=== PATIENT | female | born 1970 | race Caucasian/White ===

== ENCOUNTER 2017-06-01 10:52 | Emergency (ER) | payer OTHER ==
[2017-06-01 11:10] VITALS: BP 105/38
[2017-06-01] MEDS: Albuterol/Ipratropium 3.0-0.5 MG/3 ML Neb Soln ONE ×2 (11:14→11:16)
[2017-06-01] MEDS ORDERED: Albuterol/Ipratropium 3.0-0.5 MG/3 ML Neb Soln NEB ONE (11:15)
[2017-06-01] MEDS ORDERED: methylPREDNISolone Sodium Succinate 125 MG/2 ML SDV IM ONE (11:26)
--- NOTE | 2017-06-01 11:29 | EDM.PDOC ---
ED HPI GENERAL MEDICAL PROBLEM - General Chief Complaint: Respiratory Problem Stated Complaint: ASTHMA ATTACK Time Seen by Provider: 06/01/17 11:15 Source of Information: Reports: Patient History Limitations: Reports: No Limitations - History of Present Illness INITIAL COMMENTS - FREE TEXT/NARRATIVE: Patient presents to ER today with complaints of asthma attack that started at 0900 today. She reports she ran out of her albuterol inhaler and feels short of breath. Onset: Today Severity: Mild - Related Data Allergies Allergy/AdvReac Type Severity Reaction Status Date / Time amoxicillin Allergy Hives Verified 06/01/17 11:07 Gold Salts Allergy Hives Verified 06/01/17 11:07 Iodinated Contrast- Oral and Allergy Shortness Verified 06/01/17 11:07 IV Dye of Breath Home Meds: Home Meds Albuterol [IJD: Ventolin HFA] 06/01/17 [History] Albuterol/Ipratropium [DuoNeb 3.0-0.5 MG/3 ML] 06/01/17 [History] Past Medical History Musculoskeletal History: Reports: RA Neurological History: Reports: Migraines - Past Surgical History GI Surgical History: Reports: Cholecystectomy Female Surgical History: Reports: Hysterectomy Social & Family History - Tobacco Use Smoking Status *Q: Never Smoker ED ROS GENERAL - Review of Systems Review Of Systems: See Below Constitutional: Denies: Fever, Chills, Malaise, Weakness HEENT: Reports: No Symptoms Respiratory: Reports: Shortness of Breath, Wheezing, Cough. Denies: Pleuritic Chest Pain, Sputum, Hemoptysis Cardiovascular: Denies: Chest Pain, Blood Pressure Problem, Dyspnea on Exertion , Edema, Lightheadedness, Palpitations, PND, Syncope Endocrine: Reports: No Symptoms GI/Abdominal: Reports: No Symptoms : Reports: No Symptoms Musculoskeletal: Reports: No Symptoms Skin: Denies: Cyanosis, Jaundice, Pallor, Rash, Erythema Neurological: Denies: Confusion, Dizziness, Headache, Numbness, Tingling Psychiatric: Reports: No Symptoms Hematologic/Lymphatic: Reports: No Symptoms Immunologic: Reports: No Symptoms ED EXAM, GENERAL - Physical Exam Exam: See Below Exam Limited By: No Limitations General Appearance: Alert, WD/WN, No Apparent Distress Eye Exam: Bilateral Eye: EOMI, PERRL Ears: Normal External Exam, Normal Canal, Hearing Grossly Normal, Normal TMs Ear Exam: Bilateral Ear: Auricle Normal, Canal Normal, TM normal Nose: Normal Inspection, Normal Mucosa, No Blood Throat/Mouth: Normal Inspection, Normal Lips, Normal Oropharynx, Normal Voice, No Airway Compromise Head: Atraumatic, Normocephalic Neck: Normal Inspection, Supple, Non-Tender, Full Range of Motion Respiratory/Chest: No Respiratory Distress, Wheezing, Other (faint expiratory wheezing noted, cleared after duo-neb. ) Cardiovascular: Normal Peripheral Pulses, Regular Rate, Rhythm, No Edema, No Murmur Peripheral Pulses: 2+: Radial (L), Radial (R), Dorsalis Pedis (L), Dorsalis Pedis (R) Back Exam: Normal Inspection, Full Range of Motion. No: CVA Tenderness (R), CVA Tenderness (L) Extremities: Normal Inspection, Normal Range of Motion, Non-Tender, No Pedal Edema, Normal Capillary Refill Neurological: Alert, Oriented, CN II-XII Intact, Normal Cognition, No Motor/ Sensory Deficits Psychiatric: Normal Affect, Normal Mood Skin Exam: Warm, Dry, Intact, Normal Color, No Rash Lymphatic: No Adenopathy Course - Vital Signs Last Recorded V/S: Last Vital Signs Temp 36.5 C 06/01/17 11:13 Pulse 91 06/01/17 11:13 Resp 22 H 06/01/17 11:13 BP 105/38 L 06/01/17 11:13 Pulse Ox 100 06/01/17 11:13 - Orders/Labs/Meds Orders: Active Orders 24 hr Category Date Time Status RT Aerosol Therapy [RC] ASDIRECTED Care 06/01/17 11:15 Active Meds: Medications Discontinued Medications Generic Name Dose Route Start Last Admin Trade Name Ben PRN Reason Stop Dose Admin Albuterol/Ipratropium Confirm 06/01/17 11:03 06/01/17 11:16 Duoneb 3.0-0.5 Mg/3 Ml Administered 06/01/17 11:04 Not Given Dose 3 ml .ROUTE .STK-MED ONE Albuterol/Ipratropium 3 ml 06/01/17 11:15 06/01/17 11:16 Duoneb 3.0-0.5 Mg/3 Ml NEB 06/01/17 11:16 3 ml ONETIME ONE Administration Methylprednisolone Sodium Succinate 125 mg 06/01/17 11:26 Solu-Medrol IM 06/01/17 11:27 ONETIME ONE - Re-Assessments/Exams Free Text/Narrative Re-Assessment/Exam: 06/01/17 11:36 Breathing and shortness of breath improved after duo-neb. Patient has responded well in the past to solumedrol IM, oral prednisone causes significant stomach upset for patient. Departure - Departure Time of Disposition: 11:27 Disposition: Home, Self-Care 01 Condition: Good Clinical Impression: Acute asthma - Discharge Information Instructions: Asthma, Adult Referrals: PCP,None [Primary Care Provider] - Forms: ED Department Discharge Additional Instructions: You have suffered an acute asthma attack today. Use albuterol inhaler as directed. Nebulizers at home as needed. Solumedrol 125mg IM given in the ER today. Report to your primary provider, nearest ER with issues or concerns. - My Orders Last 24 Hours: My Active Orders 06/01/17 11:15 RT Aerosol Therapy [RC] ASDIRECTED - Assessment/Plan Last 24 Hours: My Active Orders 06/01/17 11:15 RT Aerosol Therapy [RC] ASDIRECTED Assessment:: Asthma exacerbation Plan: Albuterol HFA instymed provided. Use home nebulizers as directed. Solumedrol 125mg IM in emergency room. Patient will report to nearest clinic or emergency room for issues, concerns or worsening.
== END 2017-06-01 11:58 | disposition home or self-care (01) ==
LOC: JP.ED 10:52
DX: J45.901 Unspecified asthma with (acute) exacerbation (principal); G43.909 Migraine, unspecified, not intractable, without status migrainosus; Z90.49 Acquired absence of other specified parts of digestive tract; Z90.710 Acquired absence of both cervix and uterus; Z88.1 Allergy status to other antibiotic agents; Z91.09 Other allergy status, other than to drugs and biological substances; Z91.041 Radiographic dye allergy status
CPT/HCPCS: 96372; 99285; J2930; J7620